=== PATIENT | male | born 1950 | race Caucasian/White ===

== ENCOUNTER 2017-07-04 11:09 | Inpatient (IN) | payer MEDICARE ==
[2017-07-04] VITALS (7 sets, daily range): BP systolic 108–141; BP diastolic 54–74
[~2017-07-04] VITALS: Ht 180.3 cm; Wt 119.0 kg
[~2017-07-04 11:09] MED LIST: ASPIR-LOW81 MG PO; CIPROFLOXACIN500 MG PO; HYDROXYZINE PAM25 MG PO; OMEPRAZOLE20 MG PO; SERTRALINE HYD100 MG PO; TRAZODO50 MG PO; TRAZODONE150 MG PO; VICODIN 500 MG-1 TAB PO; ZOFRAN4 MG PO
--- NOTE | 2017-07-04 11:23 | NUR ---
LBM YESTERDAY. STATES TWICE.
[2017-07-04 11:35] LABS: BASO # 0.1 10*3/uL (0.0-0.1); BASO % 0.5 % (0.0-1.0); EOS # 0.2 10*3/uL (0.0-0.4); HEMATOCRIT 41.4 % (42.0-52.0); HEMOGLOBIN 13.7 g/dl (14.0-18.0); LYMPH # 2.4 10*3/uL (1.3-4.4); LYMPH % 13.3 % (27.0-41.0); MEAN CELL VOLUME 86.3 fl (80.0-94.0); MEAN CORPUSCULAR HGB 28.5 pg (27.0-31.0); MEAN CORPUSCULAR HGB CONC 33.1 g/dl (33.0-37.0); MEAN PLATELET VOLUME 9.8 fl (9.6-12.3); MONO # 1.1 10*3/uL (0.1-1.0); MONO % 6.2 % (3.0-9.0); NEUT # 13.9 10*3/uL (2.3-7.9); NEUT % 78.7 % (47.0-73.0); PLATELET COUNT AUTOMATED 267 10*3/uL (130-400); WHITE BLOOD COUNT 17.7 10*3/uL (4.8-10.8)
[2017-07-04 11:49] LABS: ALBUMIN 3.4 gm/dl (3.1-4.5); ALKALINE PHOSPHATASE 77 U/L (45-117); BUN 10 mg/dl (7-24); CHLORIDE 102 mmol/L (98-107); CREATININE 1.23 mg/dL (0.70-1.30); SGOT/AST 7 IU/L (3-35); SGPT/ALT 13 U/L (12-78); SODIUM 135 mmol/L (136-145); TOTAL PROTEIN 7.4 gm/dL (6.4-8.2)
[2017-07-04 11:52] LABS: BILIRUBIN NEGATIVE (NEGATIVE); BLOOD 2+ (NEGATIVE); CLARITY CLEAR (CLEAR); COLOR YELLOW (YELLOW); GLUCOSE NEGATIVE (NEGATIVE); KETONE NEGATIVE (NEGATIVE); LEUKO ESTERASE NEGATIVE (NEGATIVE); NITRITE NEGATIVE (NEGATIVE); UROBILINOGEN 0.2 E.U./dl (0.2-1.0)
[2017-07-04 11:58] LABS: BACTERIA TRACE
--- NOTE | 2017-07-04 12:40 | NUR ---
MEDICATED WITH TORADOL ORDERED FOR INCREASED PAIN. AURELIA COLEMAN RN
--- NOTE | 2017-07-04 13:53 | NUR ---
PATIENT PAIN SCALE 8/10 AT THIS TIME.
--- NOTE | 2017-07-04 14:15 | NUR ---
REPORT GIVEN TO QUINN JORDAN ON 4TH FLOOR.
--- NOTE | 2017-07-04 14:16 | NUR ---
PATIENT RATES PAIN A 6/10 AT THIS TIME.
--- NOTE | 2017-07-04 14:30 | NUR ---
PATIENT TAKEN TO 4TH FLOOR AT THIS TIME BY THIS NURSE.
--- NOTE | 2017-07-04 14:40 | NUR ---
A 67, admitted to 4E, under the services of DIANA Hager FACP, MD with a diagnosis of DIVERTICULITIS. Chief complaint is LLQ PAIN ON SET 3-4 DAYS WITH LOW GRADE TEMP AND GENERALIZED WEAKNESS. . Patient arrived via stretcher from ER. Monitor applied. Initial assessment completed. Vital signs taken and recorded. DIANA HAGER FACP, MD notified of admission to the unit. Orders received. See assessment for past medical history, medications and allergies. Patient and/or family oriented to unit. [facility] visitation policy reviewed. Clothing/patient valuable form completed. QUINN GOOD
--- NOTE | 2017-07-04 14:42 | NUR ---
QUINN JORDAN AND ROSIE RN AT BEDSIDE WITH PATIENT AT THIS TIME.
[2017-07-04] MEDS ORDERED: AVPAK PRIMIDONE50 M1 PO (14:44)
[2017-07-04] MEDS ORDERED: PLAVIX75 M1 PO (14:45)
[2017-07-04] MEDS ORDERED: ATORVASTATIN CA40 M1 PO (14:47)
--- NOTE | 2017-07-04 16:49 | NUR ---
PT REQUESTED MEDICATION FOR PAIN. PAIN RATED AT 4 OUT OF 10 AND CONSTANT. NORCO WAS GIVEN.
--- NOTE | 2017-07-04 17:49 | NUR ---
PER PT, NORCO WAS INEFFECTIVE FOR PAIN MANAGEMENT. PAIN IS NOW 6 OUT OF 10. WILL CONTINUE TO MONITOR AND WILL GIVE DILAUDID.
--- NOTE | 2017-07-04 18:55 | NUR ---
PT REQUESTED MEDICATION FOR PAIN. PAIN RATED AT 7 OUT OF 10 AND CONSTANT. DILAUDID GIVEN.
--- NOTE | 2017-07-04 19:59 | NUR ---
RN REVIEWED LAB RESULTS AND ORDERS
[2017-07-05] VITALS: BP 115/56
--- NOTE | 2017-07-05 01:04 | NUR ---
PT COMPLAINS OF ABD PAIN 05/12. MEDICATED WITH GOOD EFFECT SEE EMAR.
[2017-07-05 05:26] LABS: ACT PARTIAL THROMBO TIME 24.4 SECONDS (20.8-31.5)
[2017-07-05 05:48] LABS: BUN 9 mg/dl (7-24); CHLORIDE 102 mmol/L (98-107); CHOLESTEROL 80 mg/dL (<200); CREATININE 1.23 mg/dL (0.70-1.30); FREE T4 0.99 ng/dl (0.76-1.46); HDL CHOLESTEROL 41 mg/dl (40-60); LDL CHOLESTEROL 24 mg/dL (9-159); PHOSPHOROUS 2.4 mg/dL (2.5-4.9); POTASSIUM 4.7 mmol/L (3.5-5.1); SODIUM 136 mmol/L (136-145); TRIGLYCERIDES 75 mg/dl (<150); VLDL CHOLESTEROL 15 mg/dL (6-40)
[2017-07-05 06:20] LABS: BASO # 0.1 10*3/uL (0.0-0.1); BASO % 0.6 % (0.0-1.0); EOS # 0.3 10*3/uL (0.0-0.4); EOS % 1.6 % (1.0-4.0); HEMATOCRIT 38.8 % (42.0-52.0); HEMOGLOBIN 12.4 g/dl (14.0-18.0); LYMPH # 2.6 10*3/uL (1.3-4.4); LYMPH % 16.9 % (27.0-41.0); MEAN CELL VOLUME 87.4 fl (80.0-94.0); MEAN CORPUSCULAR HGB 27.9 pg (27.0-31.0); MEAN PLATELET VOLUME 10.7 fl (9.6-12.3); MONO # 1.4 10*3/uL (0.1-1.0); MONO % 8.9 % (3.0-9.0); NEUT # 11.1 10*3/uL (2.3-7.9); NEUT % 71.7 % (47.0-73.0); PLATELET COUNT AUTOMATED 256 10*3/uL (130-400); RED BLOOD COUNT 4.44 10*6/uL (4.50-5.90); RED CELL DISTRI WIDTH 12.9 % (0-14.5); WHITE BLOOD COUNT 15.4 10*3/uL (4.8-10.8)
[2017-07-05 06:33] LABS: VITAMIN D, 25-HYDROXY 29.5 ng/mL (30-100)
--- NOTE | 2017-07-05 07:58 | NUR ---
Window Glazier Helper in to talk to patient. Patient states lives at HOME with HIS . There are 5 steps in the home. Physician: DR JOHNSON Pharmacy: [facility] Home health services: NONE Patient's level of ADLs: INDEPENDENT Patient has working utilities: YES DME: NONE Follow-up physician's appointment after d/c: WILL BE MADE PRIOR TO DC Does patient want to access PORTAL?: Discharge plan HOME. JOAO ABEL PT DOES NOT WANT TO GO TO [facility]. REFUSAL FORM SIGNED AND FAXED TO [facility] AND [facility]LL[facility] IN BILLING. AWARE HE MAY HAVE MEDICARE COPAY. STATES "[facility] WILL PAY THAT". I EXPLAINED THAT IT HAS BEEN MY EXPERIENCE THAT [facility] DOES NOT PAY THAT. PT INSISTS THEY WILL THEY SENT HIM HERE. I EXPLAINED THAT THEY WILL PAY IF HE GOES TO [facility]. HE DECLINES.
[2017-07-05 08:00] VITALS: BP 112/71
[2017-07-05 12:00] VITALS: BP 126/84
--- NOTE | 2017-07-05 12:42 | NUR ---
PT GIVEN DILAUDID FOR PAIN RATED 8/10.
[2017-07-05 16:00] VITALS: BP 132/62
[2017-07-05 20:00] VITALS: BP 119/61
--- NOTE | 2017-07-05 20:00 | NUR ---
LAB RESULTS AND ORDERS REVIEWED
--- NOTE | 2017-07-05 23:20 | NUR ---
PT COMPLAINS OF ABD PAIN 03/11. MEDICATED WITH GOOD EFFECT SEE EMAR
[2017-07-06] VITALS: BP 106/47
--- NOTE | 2017-07-06 02:17 | NUR ---
PT COMPLAINS OF ABD PAIN 04/11. MEDICATED WITH GOOD EFFECT SEE EMAR
--- NOTE | 2017-07-06 05:30 | NUR ---
PT COMPLAINS OF ABD PAIN 02/09. MEDICATED WITH GOOD EFFECT. SEE EMAR.
[2017-07-06 06:05] LABS: BASO # 0.1 10*3/uL (0.0-0.1); BASO % 0.8 % (0.0-1.0); EOS # 0.3 10*3/uL (0.0-0.4); EOS % 2.8 % (1.0-4.0); HEMATOCRIT 36.4 % (42.0-52.0); HEMOGLOBIN 12.1 g/dl (14.0-18.0); LYMPH # 2.9 10*3/uL (1.3-4.4); LYMPH % 24.1 % (27.0-41.0); MEAN CELL VOLUME 88.1 fl (80.0-94.0); MEAN CORPUSCULAR HGB 29.3 pg (27.0-31.0); MEAN CORPUSCULAR HGB CONC 33.2 g/dl (33.0-37.0); MEAN PLATELET VOLUME 10.4 fl (9.6-12.3); MONO # 1.2 10*3/uL (0.1-1.0); MONO % 9.5 % (3.0-9.0); NEUT # 7.6 10*3/uL (2.3-7.9); NEUT % 62.3 % (47.0-73.0); PLATELET COUNT AUTOMATED 249 10*3/uL (130-400); RED BLOOD COUNT 4.13 10*6/uL (4.50-5.90); RED CELL DISTRI WIDTH 12.9 % (0-14.5); WHITE BLOOD COUNT 12.2 10*3/uL (4.8-10.8)
[2017-07-06 06:29] LABS: BUN 7 mg/dl (7-24); CHLORIDE 103 mmol/L (98-107); CREATININE 1.06 mg/dL (0.70-1.30); PHOSPHOROUS 3.1 mg/dL (2.5-4.9); POTASSIUM 4.1 mmol/L (3.5-5.1); SODIUM 138 mmol/L (136-145)
[2017-07-06 08:00] VITALS: BP 140/72
--- NOTE | 2017-07-06 08:05 | NUR ---
PT COMPLAINING OF 7/10RLQ ABDOMINAL PAIN, DESCRIBES PAIN STABBING, SHARP. MEDICATED WITH DILAUDID PER PRN ORDER. WILL MONITOR FOR EFFECTIVENESS. CALL LIGHT WITHIN REACH.
--- NOTE | 2017-07-06 09:25 | NUR ---
MEDICATED WITH NORCO FOR C/O 03/11 RLQ PAIN, STATES PAIN FEELS LIKE "LIGHTNING BOLT". WILL MONITOR FOR EFFECTIVENESS.
--- NOTE | 2017-07-06 11:17 | NUR ---
MEDICATED WITH DILAUDID PER PRN ORDER FOR C/O RLQ PAIN. PT STATES PAIN JUST COMES AND GOES AND HE IS NEVER REALLY PAIN FREEE. RATES PAIN 04/11. WILL MONITOR FOR EFFECTIVENESS.
[2017-07-06 12:00] VITALS: BP 121/68
--- NOTE | 2017-07-06 12:00 | NUR ---
DR ESCOBAR NOTIFIED OF PT'S COMPLAINT OF PRODUCTIVE COUGH WITH GREEN SPUTUM, ALSO NOTIFIED OF PT'S PERSISTENT PAIN DESPITE HAVING DILAUDID EVERY 3 HOURS AND NORCO GIVEN, PT COMPLAINING OF DIZZINESS ALSO. ORDERS RECEIVED FOR CXR AND SPUTUM CULTURE.
--- NOTE | 2017-07-06 12:40 | NUR ---
PT DOWN FOR CXR AT THIS TIME.
--- NOTE | 2017-07-06 12:40 | NUR ---
PT DOWN FOR CT AT THIS TIME.
--- NOTE | 2017-07-06 12:52 | NUR ---
PT BACK FROM CXR AT THIS TIME.
--- NOTE | 2017-07-06 12:52 | NUR ---
PT BACK FROM CT AT THIS TIME.
--- NOTE | 2017-07-06 13:33 | NUR ---
MEDICATED WITH 1MG DILAUDID PER PRN ORDER FOR COMPLAINTS OF RLQ PAIN 04/11. WILL MONITOR FOR EFFECTIVENESS. FAMILY AT BEDSIDE.
--- NOTE | 2017-07-06 14:37 | NUR ---
PT RESTING IN BED, NO DISTRESS NOTED. STATES SOME RELIEF OF PAIN. NOW RATES 02/09. WILL CONTINUE TO MONITOR.
--- NOTE | 2017-07-06 15:32 | NUR ---
MEDICATED WITH NORCO PER PRN ORDER FOR COMPLAINTS OF RLQ, RATES PAIN 7/10. WILL MONITOR FOR EFFECTIVENESS.
[2017-07-06 16:00] VITALS: BP 119/73
--- NOTE | 2017-07-06 16:18 | NUR ---
PT RESTING IN BED, STATES SOME RELIEF OF RLQ PAIN, RATES PAIN 4/10. WILL CONTINUE TO MONITOR. CALL LIGHT WITHIN REACH.
[2017-07-06 20:00] VITALS: BP 141/68
--- NOTE | 2017-07-06 20:10 | NUR ---
MEDICATED WITH PRN DILAUDID ORDERED FOR C/O LOWER ABDOMINAL PAIN RATED A 7.
--- NOTE | 2017-07-06 20:14 | NUR ---
PATIENT RESTING COMFORTABLY IN BED. C/O LOWER ABDOMINAL PAIN WHICH IS WORSE IN THE RLQ. HE DOES STATE IT IS "A MILLION TIMES BETTER" THAN WHEN HE CAME IN. HE IS PLEASANT/COOPERATIVE WITH CARE, RESPIRATIONS EASY/REG, SEE SHIFT ASSESSMENT. CALL LIGHT IN REACH, WILL MONITOR.
--- NOTE | 2017-07-06 21:17 | NUR ---
MEDICATED WITH PRN NORCO ORDERD FOR C/O ABDOMINAL PAIN RATED A 7.
--- NOTE | 2017-07-06 22:20 | NUR ---
PATIENT STATES EARLIER NORCO WAS EFFECTIVE IN DECREASING ABDOMINAL PAIN.
[2017-07-07] VITALS: BP 122/69
--- NOTE | 2017-07-07 01:50 | NUR ---
PATIENT SLEEPING, CPAP IN PLACE, RESPIRATIONS EASY/REG. NO SXS OF DISTRESS, FLUIDS MAINTAINED PER ORDER. CALL LIGHT IN REACH. WILL MONITOR.
--- NOTE | 2017-07-07 03:18 | NUR ---
24 HOUR CHART CHECK COMPLETE
--- NOTE | 2017-07-07 04:29 | NUR ---
MEDICATED WITH PRN NORCO ORDERED FOR C/O ABDOMINAL PAIN RATED A 5.
--- NOTE | 2017-07-07 05:30 | NUR ---
EARLIER NORCO EFFECTIVE PER PATIENT.
[2017-07-07 06:00] LABS: BASO # 0.1 10*3/uL (0.0-0.1); EOS # 0.5 10*3/uL (0.0-0.4); EOS % 4.6 % (1.0-4.0); HEMATOCRIT 37.2 % (42.0-52.0); HEMOGLOBIN 12.1 g/dl (14.0-18.0); LYMPH # 2.7 10*3/uL (1.3-4.4); LYMPH % 24.5 % (27.0-41.0); MEAN CELL VOLUME 87.5 fl (80.0-94.0); MEAN CORPUSCULAR HGB 28.5 pg (27.0-31.0); MEAN CORPUSCULAR HGB CONC 32.5 g/dl (33.0-37.0); MEAN PLATELET VOLUME 10.8 fl (9.6-12.3); MONO % 9.2 % (3.0-9.0); NEUT # 6.7 10*3/uL (2.3-7.9); NEUT % 60.4 % (47.0-73.0); PLATELET COUNT AUTOMATED 290 10*3/uL (130-400); RED BLOOD COUNT 4.25 10*6/uL (4.50-5.90); RED CELL DISTRI WIDTH 12.7 % (0-14.5)
[2017-07-07 08:00] VITALS: BP 148/70
--- NOTE | 2017-07-07 08:00 | NUR ---
PRN DILAUDID GIVEN PER PATIENT REQUEST FOR R/LLQ PAIN RATED 8/10. WILL MONITOR.
--- NOTE | 2017-07-07 08:53 | NUR ---
DILAUDID EFFECTIVE. PATIENT SATISFIED AND RATES PAIN 4/10.
--- NOTE | 2017-07-07 11:38 | NUR ---
PATIENT REQUEST PRN DILAUDID FOR LQ ABDOMINAL PAIN RATED 8/10. WILL MONITOR
[2017-07-07 12:00] VITALS: BP 136/76
--- NOTE | 2017-07-07 12:12 | NUR ---
REASSESSED PATIENTS PAIN BEFORE HE WENT DOWN TO CT. RATED PAIN 6/10.
--- NOTE | 2017-07-07 14:03 | NUR ---
NORCO GIVEN PER PATIENT REQUEST FOR C/O LOWER ABDOMINAL PAIN RATED 7/10. WILL MONITOR.
--- NOTE | 2017-07-07 14:45 | NUR ---
NORCO WAS NOT EFFECTIVE FOR ABDOMINAL PAIN. PATIENT REQUESTED DILAUDID FOR ABDOMINAL PAIN. PATIENT RATES PAIN AT 7/10. WILL MONITOR.
--- NOTE | 2017-07-07 15:45 | NUR ---
DILAUDID EFFECTIVE. PATIENT RATES PAIN 4/10 AND IS SATISFIED.
[2017-07-07 16:00] VITALS: BP 114/64
--- NOTE | 2017-07-07 17:24 | NUR ---
DILAUDID GIVEN PER PATIENT REQUEST FOR ABDOMINAL PAIN RATED 7/10 IN THE LOWER QUADRANT. PATIENT ALSO C/O CRAMPING AND TERRIBLE GAS PAINS. WILL MONITOR.
--- NOTE | 2017-07-07 18:17 | NUR ---
PATIENT RATES PAIN AT A 5 OR 6 OUT OF 10. HE SAID "IT JUST DOESN'T GO AWAY." WILL CONTINUE TO MANAGE PAIN.
[2017-07-07 20:00] VITALS: BP 134/67
--- NOTE | 2017-07-07 20:00 | NUR ---
ASSUMED CARE OF PATIENT. ASSESSMENT COMPLETE. RESTING IN BED. NO VOICED COMPLAINTS. CALL LIGHT IN REACH. WILL CONTINUE TO MONITOR.
--- NOTE | 2017-07-07 20:05 | NUR ---
PT RECEIVED DILAUDID FOR PAIN RATED 7/10 IN RIGHT LOWER ABDOMEN.
--- NOTE | 2017-07-07 20:38 | NUR ---
PT STATES RELIEF OF PAIN AFTER DILAUDID ADMINISTRATION. RATES PAIN 4/10.
--- NOTE | 2017-07-07 23:52 | NUR ---
PT RECEIVED DILAUDID FOR PAIN RATED 7/10.
[2017-07-08] VITALS: BP 96/54
--- NOTE | 2017-07-08 00:30 | NUR ---
PT RESTING MORE COMFORTABLY FOLLOWING DILAUDID ADMINISTRATION.
--- NOTE | 2017-07-08 01:47 | NUR ---
PT RECEIVED NORCO FOR PAIN RATED 6/10.
--- NOTE | 2017-07-08 02:26 | NUR ---
NORCO APPEARS TO BE EFFECTIVE, PT SLEEPING. CPAP INTACT. IVF INFUSING PER ORDER. CALL LIGHT IN REACH. WILL CONTINUE TO MONITOR.
--- NOTE | 2017-07-08 02:45 | NUR ---
PT IS RESTING COMFORTABLY AFTER PAIN MEDICATION ADMINISTRATION.
[2017-07-08 04:00] VITALS: BP 98/58
[2017-07-08 06:15] LABS: BASO # 0.1 10*3/uL (0.0-0.1); BASO % 0.9 % (0.0-1.0); EOS # 0.4 10*3/uL (0.0-0.4); HEMATOCRIT 35.2 % (42.0-52.0); HEMOGLOBIN 11.6 g/dl (14.0-18.0); LYMPH # 2.4 10*3/uL (1.3-4.4); LYMPH % 27.4 % (27.0-41.0); MEAN CELL VOLUME 87.1 fl (80.0-94.0); MEAN CORPUSCULAR HGB 28.7 pg (27.0-31.0); MEAN PLATELET VOLUME 10.5 fl (9.6-12.3); MONO # 0.9 10*3/uL (0.1-1.0); MONO % 10.1 % (3.0-9.0); NEUT % 56.4 % (47.0-73.0); PLATELET COUNT AUTOMATED 295 10*3/uL (130-400); RED BLOOD COUNT 4.04 10*6/uL (4.50-5.90); RED CELL DISTRI WIDTH 12.8 % (0-14.5); WHITE BLOOD COUNT 8.8 10*3/uL (4.8-10.8)
--- NOTE | 2017-07-08 06:25 | NUR ---
NORCO GIVEN FOR PAIN RATED 5/10.
[2017-07-08 06:27] LABS: BUN 4 mg/dl (7-24); CHLORIDE 105 mmol/L (98-107); CREATININE 1.06 mg/dL (0.70-1.30); POTASSIUM 4.3 mmol/L (3.5-5.1); SODIUM 141 mmol/L (136-145)
[2017-07-08 08:00] VITALS: BP 159/80
--- NOTE | 2017-07-08 10:30 | NUR ---
PRN PAIN MED GIVEN FOR 5/10 RLQ PAIN.
--- NOTE | 2017-07-08 11:30 | NUR ---
PRN PAIN MED MINIMALLY EFFECTIVE, PT REPORTS 4/10 RLQ ABDOMINAL PAIN.
--- NOTE | 2017-07-08 11:33 | NUR ---
PRN ZOFRAN EFFECTIVE, PT DENIES NAUSEA.
[2017-07-08 12:00] VITALS: BP 148/76
--- NOTE | 2017-07-08 12:21 | NUR ---
PRN PAIN MED GIVEN FOR 6/10 RLQ ABDOMINAL PAIN.
--- NOTE | 2017-07-08 13:01 | NUR ---
IV CATHETER NOT CHANGED , PT POSSIBLE DISCHARGE TODAY.
--- NOTE | 2017-07-08 13:21 | NUR ---
PRN PAIN MED IS MINIMALLY EFFECTIVE, PT REPORTS HIS PAIN UNCHANGED AT 6/10 TO RLQ.
--- NOTE | 2017-07-08 14:34 | NUR ---
PRN ZOFRAN GIVEN FOR PT REPORT NAUSEA.
[2017-07-08 16:00] VITALS: BP 125/80
--- NOTE | 2017-07-08 16:04 | NUR ---
PRN PAIN MED GIVEN FOR A 6/10 RLQ ABDOMINAL PAIN.
--- NOTE | 2017-07-08 17:01 | NUR ---
PRN PAIN MED MINIMALLY EFFECTIVE, PT REPORTS HIS PAIN 5/10 TO RLQ.
[2017-07-08 20:00] VITALS: BP 137/73
--- NOTE | 2017-07-08 20:33 | NUR ---
PT C/O RLQ PAIN, REQUESTED PRN PAIN MEDICATION, ADMINISTERED DILAUDID IV PRN PER ORDERS, WILL MONITOR EFFECTS
--- NOTE | 2017-07-08 21:59 | NUR ---
PT RESTING IN BED WITH EYES CLOSED RESPS EASY AND NONLABORED WITH NO S/S OF DISTRESS PRN PAIN MEIDCATION EFFECTIVE AT THIS TIME
[2017-07-09] VITALS: BP 115/58
--- NOTE | 2017-07-09 | NUR ---
PT STATES NORCO MINIMALLY EFFECTIVE TO REDUCE ABDOMINAL PAIN 02/09 TO 12/10. ROLY MONCADA RN
--- NOTE | 2017-07-09 02:07 | NUR ---
PT C/O ABDOMINAL PAIN AND REQUESTED PRN PAIN MEDICATION ADMINSITERED DILAUDID IV PRN PER ORDERS WILL MONITOR EFFECTS
--- NOTE | 2017-07-09 03:07 | NUR ---
PT REPORTS THAT PAIN MEDICATION IS EFFECTIVE,
--- NOTE | 2017-07-09 05:36 | NUR ---
PT REQUESTED PRN PAIN MEDICATION, ADMINISTERED DILAUDID IV PRN PER ORDERS, R/T ABDOMINAL PAIN, WILL MONITOR EFFECTS
--- NOTE | 2017-07-09 06:40 | NUR ---
PT REPORTS DECREASED PAIN LEVEL, DILAUDID IV PRN PER ORDERS EFFECTIVE, PT RESTING IN BED AT THIS TIME, CALL LIGHT WITH IN REACH
[2017-07-09 08:00] VITALS: BP 136/74
--- NOTE | 2017-07-09 08:00 | NUR ---
PATIENT CARE BEING COMPLETED BY [facility] STUDENT TODAY. ON MY ASSESSMENT PT IS ALERT AND ORIENTED, VITALS ARE WNL WITH EXCEPTION OF HR 43. PATIENT REMAINS NON SYMPTOMATIC. HR IS NORMAL SINUS, LUNGS ARE CLEAR BUT DECREASED AND BOWEL SOUNDS ARE ACTIVE X 4. PT REPORTS HIS LAST BM WAS YESTERDAY AND WAS DIARRHEA.
--- NOTE | 2017-07-09 09:40 | NUR ---
PT MEDICATED BY STUDENT FOR 5-6/10 RLQ ABDOMINAL PAIN.
[2017-07-09 12:00] VITALS: BP 126/86
--- NOTE | 2017-07-09 12:42 | NUR ---
PT REPORTS THAT HE TOLERATED HIS SOFT BREAKFAST WELL. PT DENIES ANY N/V. PT HAS HAD A BM TODAY WHICH WAS DIARRHEA.
--- NOTE | 2017-07-09 13:52 | NUR ---
PRN NORCO GIVEN FOR 6/10 RLQ PAIN.
--- NOTE | 2017-07-09 14:52 | NUR ---
PRN PAIN MED MINIMALLY EFFECTIVE, PT RATES HIS PAIN 4/10 TO RLQ.
[2017-07-09 16:00] VITALS: BP 150/67
--- NOTE | 2017-07-09 18:05 | NUR ---
PRN PAIN MED GIVEN FOR 6/10 RLQ PAIN.
--- NOTE | 2017-07-09 19:07 | NUR ---
PRN ZOFRAN GIVEN FOR MILD NAUSEA, NO VOMITING NOTED.
--- NOTE | 2017-07-09 19:08 | NUR ---
PRN PAIN MED MINIMALLY EFFECTIVE, PT RATES PAIN 6/10 STILL. COMFORT MEASURES INITIATED.
[2017-07-09 20:00] VITALS: BP 124/73
--- NOTE | 2017-07-09 21:30 | NUR ---
PT STATES ZOFRAN EFFECTIVE FOR NAUSEA. ROLY MONCADA RN
[2017-07-10] VITALS: BP 108/48
--- NOTE | 2017-07-10 06:30 | NUR ---
PT STATES NORCO EFFECTIVE TO REDUCE ABDOMINAL PAIN FROM 12/10 TO 11/09. ROLY MONCADA RN
[2017-07-10 08:00] VITALS: BP 130/66
--- NOTE | 2017-07-10 08:00 | NUR ---
PT SITTING UP AT SIDE OF BED EATING BREAKFAST, STATES HE FEELS HE IS READY TO GO HOME, DOES STATES HE STILL HAS SOME INTERMITTENT RLQ PAIN, STATES IT COMES AND GOES, BUT IS NOT SEVERE IT HAD BEEN, RATES PAIN 3/10. PT DENIES ANY NAUSEA, DOES STATE SOME DIARRHEA-WHICH HE STATES IS NORMAL FOR HIM. DENIES ANY FURTHER ISSUES. CALL LIGHT WITHIN REACH.
[2017-07-10 08:56] LABS: BASO # 0.1 10*3/uL (0.0-0.1); BASO % 1.1 % (0.0-1.0); EOS # 0.5 10*3/uL (0.0-0.4); EOS % 5.4 % (1.0-4.0); HEMATOCRIT 38.6 % (42.0-52.0); HEMOGLOBIN 12.8 g/dl (14.0-18.0); LYMPH # 2.2 10*3/uL (1.3-4.4); MEAN CELL VOLUME 85.8 fl (80.0-94.0); MEAN CORPUSCULAR HGB 28.4 pg (27.0-31.0); MEAN CORPUSCULAR HGB CONC 33.2 g/dl (33.0-37.0); MEAN PLATELET VOLUME 9.9 fl (9.6-12.3); MONO # 0.6 10*3/uL (0.1-1.0); MONO % 5.9 % (3.0-9.0); NEUT # 6.3 10*3/uL (2.3-7.9); NEUT % 64.4 % (47.0-73.0); PLATELET COUNT AUTOMATED 324 10*3/uL (130-400); RED CELL DISTRI WIDTH 12.7 % (0-14.5); WHITE BLOOD COUNT 9.8 10*3/uL (4.8-10.8)
[2017-07-10 09:11] LABS: ALKALINE PHOSPHATASE 77 U/L (45-117); BUN 6 mg/dl (7-24); CHLORIDE 105 mmol/L (98-107); CREATININE 1.27 mg/dL (0.70-1.30); POTASSIUM 4.2 mmol/L (3.5-5.1); SGOT/AST 15 IU/L (3-35); SGPT/ALT 20 U/L (12-78); SODIUM 139 mmol/L (136-145); TOTAL PROTEIN 6.9 gm/dL (6.4-8.2)
[2017-07-10 12:00] VITALS: BP 131/70
[2017-07-10] MEDS ORDERED: NORCO 5-325 TA1 EACH PO (14:20)
--- NOTE | 2017-07-10 15:16 | NUR ---
Discharge instructions reviewed with patient/family. Patient receptive and verbalizes understanding. Follow-up care arranged. Written instructions given to patient/family. IV site removed. Pt denied need for transport to [facility], [place]. CHRISTY DE LA PAZ
== END 2017-07-10 15:30 | disposition home or self-care (01) | DRG 392 ==
LOC: ED 11:09 → EDHOLD 13:33 → 4E 13:33
PROVIDERS: Internal Medicine; Student in an Organized Health Care Education/Training Program; ADMIT Internal Medicine
PROC: 5A09357 Assistance with Respiratory Ventilation, Less than 24 Consecutive Hours, Continuous Positive Airway Pressure (ICD-10-PCS; principal; 2017-07-09)
DX: K57.20 Diverticulitis of large intestine with perforation and abscess without bleeding (principal); E83.39 Other disorders of phosphorus metabolism; E87.1 Hypo-osmolality and hyponatremia; R00.1 Bradycardia, unspecified; R31.9 Hematuria, unspecified; R73.9 Hyperglycemia, unspecified; D64.9 Anemia, unspecified; F43.10 Post-traumatic stress disorder, unspecified; G47.33 Obstructive sleep apnea (adult) (pediatric); K58.9 Irritable bowel syndrome, unspecified; E53.8 Deficiency of other specified B group vitamins; Z86.73 Personal history of transient ischemic attack (TIA), and cerebral infarction without residual deficits; Z90.49 Acquired absence of other specified parts of digestive tract; Z87.891 Personal history of nicotine dependence; Z80.0 Family history of malignant neoplasm of digestive organs; Z80.8 Family history of malignant neoplasm of other organs or systems; Z88.5 Allergy status to narcotic agent; Z88.0 Allergy status to penicillin; Z88.8 Allergy status to other drugs, medicaments and biological substances; Z79.899 Other long term (current) drug therapy

== ENCOUNTER 2018-06-15 09:51 | Inpatient (IN) | payer MEDICARE ==
[~2018-06-15] VITALS: Ht 180.3 cm; Wt 118.4 kg
--- NOTE | ~2018-06-15 | EKG ---
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 Electronically Signed On 06-15-2018 13:56:34 PDT by Frantz Bruno MD CM:EKGRPT:ELECTROCARDIOGRAM REPORT [id number] ELIZABETH COLEMAN DRAFT REPORT ELIZABETH MELENDREZ DO
--- NOTE | ~2018-06-15 | PR ---
[place], [place] PROGRESS NOTE NAME: JACQUELINE MARCIAL UNIT #: [id number] ROOM: 425 DOCTOR: MURPHY PRO MD BIRTHDATE: [birth year] DOS: 06/16/2018 CARDIOLOGY PROGRESS NOTE SUBJECTIVE: The patient was seen in the Cardiology Department today 06/16/2018 prior to his stress test. He states that overnight he has had a lot of problems with abdominal pain and nausea. He has not vomited. He denies any chest pain. PHYSICAL EXAMINATION: VITAL SIGNS: On exam, his pulse is 62 and regular, blood pressure is 139/58. He is afebrile with a temperature 98.8. NECK: Supple. He has no jugular distention. Carotids are full. LUNGS: Respirations are unlabored. Chest is clear with decreased breath sounds at the bases. HEART: Has a regular rhythm with an S4 gallop. ABDOMEN: Firm and diffusely tender, but has normal bowel sounds. EXTREMITIES: Showed no edema. LABORATORY DATA: Hemoglobin is 12.6, hematocrit 38.4. There are 12,600 white cells and 243,000 platelets. Sodium is 138, potassium 4.0, BUN 7, creatinine 1.15. IMPRESSION: 1. Atypical precordial pain, etiology to be determined. 2. Abdominal pain, likely due to acute diverticulitis. 3. Syncopal episode, most likely vasovagal from abdominal pain, possibly also due to dehydration. 4. History of cigarette abuse, abstinent for about 1 month. 5. Status post cholecystectomy. 6. Probable chronic obstructive pulmonary disease. 7. Family history of heart disease. PLAN: We will proceed with a pharmacologic stress test today. An echocardiogram has also been requested. Further recommendations depend upon the results of these tests. We will defer his abdominal workup and management to his primary team. I thank the hospitalist physicians for asking our advice regarding his care. [place], [place] PROGRESS NOTE NAME: JACQUELINE MARCIAL UNIT #: [id number] ROOM: 425 DOCTOR: MURPHY PRO MD BIRTHDATE: [birth year] MURPHY PRO MD CM:PNTRANS [id number] MURPHY PRO MD 06/16/18 1746 interface
--- NOTE | ~2018-06-15 | CON ---
[place], [place] REPORT OF CONSULTATION NAME: [facility]CIAL [id number] UNIT #: [id number] ROOM: 425 DOCTOR: MURPHY PRO MD BIRTHDATE: [birth year] DOS: 06/15/2018 CARDIOLOGY CONSULTATION REASON FOR CONSULTATION: Chest pain, syncope. HISTORY OF PRESENT ILLNESS: The patient was seen at his bedside in the hospital today on 06/15/2018 for evaluation of chest discomfort and syncope. He is a 68-year-old man who was no previous history of heart disease. He does have a strong family history of coronary artery disease and he does have a personal history of cigarette abuse. He was in his normal state of health until the last few months when he began having episodes of left chest pain that came and went without provocation. He was evaluated by his physicians at the [facility] and he was scheduled for an echocardiogram and stress test, but these have not yet been done. In the last three weeks, he has had remittent abdominal pain and diarrhea. He thought that it had a recurrence of his diverticulitis. He has been trying to "ride it out." At this morning, he got up and blew his nose and dropped the tissue. He stooped over to pick it up, became lightheaded and then fell backwards. He did not hit his head, but he noticed after that he had an aching sensation in his chest and shoulder. This was similar to what he has had in the past, but worse. It was not related to deep breathing or movement of the shoulder. He became concerned and came to the Emergency Room. Since he has been here, his troponins have been negative and his electrocardiograms have shown no acute changes. PAST MEDICAL HISTORY: Includes: 1. Obesity. 2. Diverticulitis. 3. Status post cholecystectomy. 4. History of duodenal diverticulum. 5. History of kidney stone. 6. History of transient ischemic attack and stroke about 3 years ago. Etiology was apparently not found. He specifically denied any problems with carotid stenosis or arrhythmias. FAMILY HISTORY: Both of his parents had heart disease in their later years. His father ended up dying of metastatic colon cancer in his 70s. His mother had heart disease in her 60s. His sister during open heart surgery in her 70s. MEDICATIONS PRIOR TO ADMISSION: Refresh eyedrops t.i.d., atorvastatin 40 mg daily, vitamin D 2000 units daily, clopidogrel 75 mg daily, hydroxyzine 50 mg q.i.d. p.r.n., omeprazole 20 mg daily, prazosin 8 mg at bedtime, primidone 150 mg t.i.d., sertraline 250 mg daily, sildenafil 100 mg daily and trazodone 250 mg at bedtime. ALLERGIES: He lists allergies to CODEINE and PENICILLIN. REVIEW OF SYSTEMS: The patient denies diplopia, loss of vision. He denies any recent focal weakness. He denies fevers, chills, sweats or recent weight change. He did have the syncopal episode noted above. He denies vomiting, but [place], [place] REPORT OF CONSULTATION NAME: JACQUELINE MARCIAL UNIT #: [id number] ROOM: 425 DOCTOR: MURPHY PRO MD BIRTHDATE: [birth year] he has had nausea and diarrhea along with severe abdominal pain. He denies fevers, chills, sweats or recent weight change. He denies hemoptysis or hematemesis. He denies any skin rashes. He has not had any blood in his stools or urine. He denies any peripheral edema. He has had the chest discomfort noted above. He denies polyuria or polydipsia. He denies heat or cold intolerance. The remainder of the review of systems is negative except as noted above. SOCIAL HISTORY: The patient was a smoker, but quit about a month ago. He does not consume excessive amounts of alcohol. PHYSICAL EXAMINATION: GENERAL: The patient is an overweight white male who is awake, alert and oriented. VITAL SIGNS: Pulse is 55 and regular, blood pressure is 123/69. He is afebrile. He weighs 118.4 kg and has a body mass index of 36.4. HEENT: Normocephalic and atraumatic. Extraocular muscles are intact. Sclerae are clear. Pupils equal, round and react to light. The oral mucosa is moist. Tongue is midline. NECK: Supple. He has no jugular distention. Carotids are full. I heard no bruits. He had no neck or supraclavicular masses and no thyromegaly. LUNGS: Respirations are unlabored. CHEST: Clear to auscultation and percussion. He has no presacral edema or chest wall tenderness. CARDIOVASCULAR: His heart has a regular rhythm. He has a fourth heart sound, but no third heart sound. The PMI is not displaced. There is no precordial heave, lift or thrill. ABDOMEN: Firm and slightly distended. He does have normal bowel sounds. His abdomen is diffusely tender to touch. EXTREMITIES: Showed no clubbing, cyanosis or edema. Pedal pulses are easily palpated in the feet bilaterally. LABORATORY DATA: Electrocardiogram shows sinus bradycardia with atrial premature contractions. He has nonspecific intraventricular conduction delay, but no acute ST or T-wave changes. Hemoglobin is 14.6, white count 15,000, platelet count 287,000. Serial troponins have been negative. C-reactive protein is elevated at 3.21. ProBNP is normal at 30. Sodium is 140, potassium 4.1, chloride 107, CO2 26, BUN 7, creatinine 1.05. IMPRESSION: 1. Atypical precordial chest pain. Etiology to be determined. 2. Abdominal pain, possibly due to acute diverticulitis. 3. Syncopal episode, most likely vasovagal from his abdominal pain or possibly due to dehydration from his abdominal pain. 4. History of cigarette abuse, abstinent for about one month. 5. Status post cholecystectomy. 6. Probable chronic obstructive pulmonary disease. 7. Family history of heart disease. PLAN: We will continue to monitor the patient on telemetry. Serial cardiac [place], [place] REPORT OF CONSULTATION NAME: JACQUELINE MARCIAL UNIT #: [id number] ROOM: 425 DOCTOR: MURPHY PRO MD BIRTHDATE: [birth year] enzymes have been negative. We will proceed with an echocardiogram and pharmacologic stress test. Further recommendations will depend upon the results of the studies. I will also be getting a carotid ultrasound to further investigate the cause for his stroke. [facility] Cardiology and I thank the hospitalist physicians for asking our advice regarding the patient's care. MURPHY PRO MD CM:CONSTR:REPORT OF CONSULTATION 1525 06/15/18 [id number] interface
--- NOTE | ~2018-06-15 | EKG ---
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 Electronically Signed On 06-15-2018 13:56:07 PDT by Frantz Bruno MD CM:EKGRPT:ELECTROCARDIOGRAM REPORT [id number] ELIZABETH COLEMAN DRAFT REPORT ELIZABETH MELENDREZ DO
--- NOTE | ~2018-06-15 | EKG ---
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
--- NOTE | ~2018-06-15 | PR ---
[place], [place] PROGRESS NOTE NAME: JACQUELINE MARCIAL [facility] [id number] UNIT #: [id number] ROOM: 425 DOCTOR: MURPHY PRO MD BIRTHDATE: [birth year] DOS: 06/17/2018 CARDIOLOGY PROGRESS NOTE SUBJECTIVE: The patient was seen at his bedside today 06/17/2018 for followup of atypical chest pain. He is a 68-year-old man who presented with abdominal pain. His cardiac workup was unremarkable and he showed no signs of acute coronary ischemia or chronic coronary artery disease. His abdominal pain is felt to be due to a probable diverticulitis. He did have a syncopal episode, which is also likely due to vasovagal reaction to his abdominal pain. The patient continues to have abdominal pain, but denies any chest discomfort at this time. PHYSICAL EXAMINATION: VITAL SIGNS: His pulse is 53 and regular, blood pressure is 125/58. He is afebrile. He weighs 118.4 kg and has a body mass index of 36.4. NECK: Supple. He has no jugular distention. Carotids are full. LUNGS: Respirations are unlabored. Chest is clear. HEART: Has a regular rhythm with an S4 gallop. ABDOMEN: Distended and tender, but has bowel sounds. EXTREMITIES: Showed no edema. LABORATORY DATA: White count 11,900, hemoglobin 12.7. Sodium 139, potassium 4.3, chloride 101, CO2 of 29, BUN 7, creatinine 1.03. IMPRESSION: 1. Atypical chest pain, most likely due to abdominal process. 2. Syncopal episode, vasovagal from abdominal pain exacerbated by dehydration. 3. History of cigarette abuse, abstinent for about 1 month. 4. Status post cholecystectomy. 5. Chronic obstructive pulmonary disease. 6. Family history of heart disease. PLAN: No other cardiac workup is planned. The patient is being managed by the primary physicians for probable diverticulitis. We will sign off, but remain available if needed and I thank the hospitalist physicians for asking our advice regarding his care. [place], [place] PROGRESS NOTE NAME: JACQUELINE MARCIAL UNIT #: [id number] ROOM: 425 DOCTOR: MURPHY PRO MD BIRTHDATE: [birth year] MURPHY PRO MD CM:PNULISES [id number] MURPHY PRO MD 06/17/18 1249 interface
[~2018-06-15 09:51] MED LIST changes: +ATORVASTATIN CA40 M1 PO; +AVPAK PRIMIDONE50 M1 PO; +NORCO 5-325 TA1 EACH PO; +PLAVIX75 M1 PO
[2018-06-15 09:59] VITALS: BP 120/67
[2018-06-15] MEDS ORDERED: Mysoline50 MG PO (10:15)
[2018-06-15] MEDS ORDERED: PRAZOSIN HCL2 MG PO (10:15)
[2018-06-15] MEDS ORDERED: ZOLOFT100 MG PO (10:16)
[2018-06-15] MEDS ORDERED: TRAZODONE100 MG PO (10:16)
[2018-06-15] MEDS ORDERED: LIPITOR40 MG PO (10:17)
[2018-06-15] MEDS ORDERED: HYDROXYZINE PAM50 MG PO (10:17)
[2018-06-15] MEDS ORDERED: REFRESH OPTIVE10 M2 OP (10:18)
[2018-06-15] MEDS ORDERED: OMEPRAZOLE MAGN20 MG PO (10:18)
[2018-06-15] MEDS ORDERED: VIAGRA100 MG PO (10:19)
[2018-06-15] MEDS ORDERED: VITAMIN D31000 UNI1 PO (10:19)
[2018-06-15] MEDS ORDERED: Clopidogrel75 MG PO (10:19)
[2018-06-15 10:20] LABS: BASO # 0.1 10*3/uL (0.0-0.1); BASO % 0.7 % (0.0-1.0); EOS # 0.3 10*3/uL (0.0-0.4); HEMATOCRIT 43.7 % (42.0-52.0); HEMOGLOBIN 14.6 g/dl (14.0-18.0); LYMPH # 2.4 10*3/uL (1.3-4.4); MEAN CELL VOLUME 86.5 fl (80.0-94.0); MEAN CORPUSCULAR HGB 28.9 pg (27.0-31.0); MEAN CORPUSCULAR HGB CONC 33.4 g/dl (33.0-37.0); MONO % 6.9 % (3.0-9.0); NEUT # 11.1 10*3/uL (2.3-7.9); NEUT % 74.1 % (47.0-73.0); PLATELET COUNT AUTOMATED 287 10*3/uL (130-400); RED BLOOD COUNT 5.05 10*6/uL (4.50-5.90); RED CELL DISTRI WIDTH 13.6 % (0-14.5)
[2018-06-15 10:30] LABS: ACT PARTIAL THROMBO TIME 22.9 SECONDS (20.8-31.5); INTERNATIONAL NORM RATIO 0.9 (2.0-3.5)
[2018-06-15 10:38] LABS: ALBUMIN 3.4 gm/dl (3.1-4.5); ALKALINE PHOSPHATASE 84 U/L (45-117); BUN 7 mg/dl (7-24); CHLORIDE 107 mmol/L (98-107); CREATININE 1.05 mg/dL (0.70-1.30); POTASSIUM 4.1 mmol/L (3.5-5.1); SGOT/AST 8 IU/L (3-35); SGPT/ALT 16 U/L (12-78); SODIUM 140 mmol/L (136-145); TOTAL PROTEIN 7.6 gm/dL (6.4-8.2)
[2018-06-15 10:44] LABS: TROPONIN I < 0.015 ng/ml (<0.045)
[2018-06-15 10:57] VITALS: BP 122/68
[2018-06-15 13:45] VITALS: BP 130/66
[2018-06-15 14:10] VITALS: BP 123/69
[2018-06-15 16:00] VITALS: BP 129/72
[2018-06-15 20:00] VITALS: BP 121/80
[2018-06-16] VITALS: BP 139/58
[2018-06-16 06:38] LABS: BASO # 0.1 10*3/uL (0.0-0.1); BASO % 0.7 % (0.0-1.0); EOS # 0.3 10*3/uL (0.0-0.4); EOS % 2.2 % (1.0-4.0); HEMATOCRIT 38.4 % (42.0-52.0); HEMOGLOBIN 12.6 g/dl (14.0-18.0); LYMPH # 2.6 10*3/uL (1.3-4.4); LYMPH % 20.7 % (27.0-41.0); MEAN CELL VOLUME 88.1 fl (80.0-94.0); MEAN CORPUSCULAR HGB 28.9 pg (27.0-31.0); MEAN CORPUSCULAR HGB CONC 32.8 g/dl (33.0-37.0); MEAN PLATELET VOLUME 10.3 fl (9.6-12.3); MONO # 1.2 10*3/uL (0.1-1.0); MONO % 9.8 % (3.0-9.0); NEUT # 8.4 10*3/uL (2.3-7.9); NEUT % 66.3 % (47.0-73.0); PLATELET COUNT AUTOMATED 243 10*3/uL (130-400); RED BLOOD COUNT 4.36 10*6/uL (4.50-5.90); RED CELL DISTRI WIDTH 13.4 % (0-14.5); WHITE BLOOD COUNT 12.6 10*3/uL (4.8-10.8)
[2018-06-16 07:14] LABS: CHLORIDE 103 mmol/L (98-107); SODIUM 138 mmol/L (136-145)
[2018-06-16 07:31] LABS: ALBUMIN 2.9 gm/dl (3.1-4.5); ALKALINE PHOSPHATASE 73 U/L (45-117); BUN 7 mg/dl (7-24); CHOLESTEROL 120 mg/dL (<200); CREATININE 1.15 mg/dL (0.70-1.30); FREE T4 0.86 ng/dl (0.76-1.46); HDL CHOLESTEROL 28 mg/dl (40-60); LDL CHOLESTEROL 65 mg/dL (9-159); PHOSPHOROUS 2.2 mg/dL (2.5-4.9); SGOT/AST 11 IU/L (3-35); SGPT/ALT 14 U/L (12-78); TOTAL PROTEIN 6.3 gm/dL (6.4-8.2); TRIGLYCERIDES 133 mg/dl (<150); VLDL CHOLESTEROL 27 mg/dL (6-40)
[2018-06-16 07:32] LABS: ACT PARTIAL THROMBO TIME 24.9 SECONDS (20.8-31.5)
[2018-06-16 08:00] VITALS: BP 118/60
[2018-06-16 12:00] VITALS: BP 144/69
[2018-06-16 15:25] LABS: VITAMIN D, 25-HYDROXY 26.7 ng/mL (30-100)
[2018-06-16 16:00] VITALS: BP 100/40
[2018-06-16 20:00] VITALS: BP 145/73
[2018-06-17] VITALS: BP 140/63
[2018-06-17 06:26] LABS: BASO # 0.1 10*3/uL (0.0-0.1); BASO % 0.7 % (0.0-1.0); EOS # 0.4 10*3/uL (0.0-0.4); EOS % 3.5 % (1.0-4.0); HEMOGLOBIN 12.7 g/dl (14.0-18.0); LYMPH # 2.5 10*3/uL (1.3-4.4); LYMPH % 21.3 % (27.0-41.0); MEAN CORPUSCULAR HGB CONC 32.6 g/dl (33.0-37.0); MEAN PLATELET VOLUME 10.4 fl (9.6-12.3); MONO # 1.2 10*3/uL (0.1-1.0); MONO % 10.2 % (3.0-9.0); NEUT # 7.6 10*3/uL (2.3-7.9); PLATELET COUNT AUTOMATED 225 10*3/uL (130-400); RED BLOOD COUNT 4.38 10*6/uL (4.50-5.90); RED CELL DISTRI WIDTH 13.4 % (0-14.5); WHITE BLOOD COUNT 11.9 10*3/uL (4.8-10.8)
[2018-06-17 06:48] LABS: BUN 7 mg/dl (7-24); CHLORIDE 105 mmol/L (98-107); CREATININE 1.03 mg/dL (0.70-1.30); PHOSPHOROUS 3.1 mg/dL (2.5-4.9); POTASSIUM 4.3 mmol/L (3.5-5.1); SODIUM 139 mmol/L (136-145)
[2018-06-17 08:00] VITALS: BP 125/58
[2018-06-17 12:00] VITALS: BP 123/59
[2018-06-17 16:00] VITALS: BP 114/64
[2018-06-17 20:00] VITALS: BP 108/89
[2018-06-18] VITALS: BP 136/74
[2018-06-18 06:05] LABS: BASO # 0.1 10*3/uL (0.0-0.1); BASO % 0.6 % (0.0-1.0); EOS # 0.6 10*3/uL (0.0-0.4); HEMATOCRIT 37.7 % (42.0-52.0); HEMOGLOBIN 12.4 g/dl (14.0-18.0); LYMPH % 17.8 % (27.0-41.0); MEAN CELL VOLUME 87.7 fl (80.0-94.0); MEAN CORPUSCULAR HGB 28.8 pg (27.0-31.0); MEAN CORPUSCULAR HGB CONC 32.9 g/dl (33.0-37.0); MEAN PLATELET VOLUME 10.2 fl (9.6-12.3); MONO # 1.1 10*3/uL (0.1-1.0); MONO % 9.7 % (3.0-9.0); NEUT # 7.7 10*3/uL (2.3-7.9); NEUT % 66.6 % (47.0-73.0); PLATELET COUNT AUTOMATED 222 10*3/uL (130-400); RED CELL DISTRI WIDTH 13.4 % (0-14.5); WHITE BLOOD COUNT 11.5 10*3/uL (4.8-10.8)
[2018-06-18 06:14] LABS: BUN 5 mg/dl (7-24); CHLORIDE 103 mmol/L (98-107); CREATININE 1.01 mg/dL (0.70-1.30); POTASSIUM 3.7 mmol/L (3.5-5.1); SODIUM 137 mmol/L (136-145)
[2018-06-18 08:00] VITALS: BP 127/71
[2018-06-18 12:00] VITALS: BP 114/93
[2018-06-18 16:00] VITALS: BP 132/67
[2018-06-18 20:00] VITALS: BP 125/72
[2018-06-19] VITALS: BP 138/63
[2018-06-19 06:57] LABS: BASO # 0.1 10*3/uL (0.0-0.1); BASO % 1.3 % (0.0-1.0); EOS # 0.6 10*3/uL (0.0-0.4); EOS % 6.8 % (1.0-4.0); HEMATOCRIT 38.9 % (42.0-52.0); HEMOGLOBIN 12.7 g/dl (14.0-18.0); LYMPH # 2.4 10*3/uL (1.3-4.4); LYMPH % 27.2 % (27.0-41.0); MEAN CELL VOLUME 87.6 fl (80.0-94.0); MEAN CORPUSCULAR HGB 28.6 pg (27.0-31.0); MEAN CORPUSCULAR HGB CONC 32.6 g/dl (33.0-37.0); MEAN PLATELET VOLUME 10.6 fl (9.6-12.3); MONO % 10.9 % (3.0-9.0); NEUT # 4.8 10*3/uL (2.3-7.9); NEUT % 53.6 % (47.0-73.0); PLATELET COUNT AUTOMATED 244 10*3/uL (130-400); RED BLOOD COUNT 4.44 10*6/uL (4.50-5.90); RED CELL DISTRI WIDTH 13.3 % (0-14.5)
[2018-06-19 08:00] VITALS: BP 128/76
[2018-06-19 16:00] VITALS: BP 118/77
[2018-06-19 20:00] VITALS: BP 159/64
[2018-06-20] VITALS: BP 132/62
[2018-06-20 06:39] LABS: BASO # 0.1 10*3/uL (0.0-0.1); EOS # 0.7 10*3/uL (0.0-0.4); EOS % 7.5 % (1.0-4.0); HEMATOCRIT 39.8 % (42.0-52.0); LYMPH # 2.2 10*3/uL (1.3-4.4); LYMPH % 22.2 % (27.0-41.0); MEAN CELL VOLUME 88.1 fl (80.0-94.0); MEAN CORPUSCULAR HGB 28.8 pg (27.0-31.0); MEAN CORPUSCULAR HGB CONC 32.7 g/dl (33.0-37.0); MEAN PLATELET VOLUME 10.7 fl (9.6-12.3); MONO # 0.9 10*3/uL (0.1-1.0); MONO % 9.5 % (3.0-9.0); NEUT # 5.8 10*3/uL (2.3-7.9); NEUT % 59.6 % (47.0-73.0); PLATELET COUNT AUTOMATED 253 10*3/uL (130-400); RED BLOOD COUNT 4.52 10*6/uL (4.50-5.90); RED CELL DISTRI WIDTH 13.3 % (0-14.5); WHITE BLOOD COUNT 9.8 10*3/uL (4.8-10.8)
[2018-06-20 07:05] LABS: BUN 5 mg/dl (7-24); CHLORIDE 106 mmol/L (98-107); CREATININE 1.12 mg/dL (0.70-1.30); POTASSIUM 4.2 mmol/L (3.5-5.1); SODIUM 140 mmol/L (136-145)
[2018-06-20 08:00] VITALS: BP 135/69
[2018-06-20] MEDS ORDERED: FLAGYL500 MG PO (11:16)
[2018-06-20] MEDS ORDERED: NORCO 5-325 TA1 EACH PO (11:16)
[2018-06-20] MEDS ORDERED: CIPRO250 MG PO (11:16)
== END 2018-06-20 13:05 | disposition home or self-care (01) | DRG 392 ==
LOC: ED 09:51 → EDHOLD 13:08 → 4E 13:08
PROVIDERS: Emergency Medicine; Internal Medicine
PROC: 4A02XM4 Measurement of Cardiac Total Activity, External Approach (ICD-10-PCS; principal; 2018-06-16)
PROC: 3E073KZ Introduction of Other Diagnostic Substance into Coronary Artery, Percutaneous Approach (ICD-10-PCS; principal; 2018-06-16)
DX: K57.32 Diverticulitis of large intestine without perforation or abscess without bleeding (principal); E44.1 Mild protein-calorie malnutrition; I50.32 Chronic diastolic (congestive) heart failure; K21.9 Gastro-esophageal reflux disease without esophagitis; E83.41 Hypermagnesemia; F43.10 Post-traumatic stress disorder, unspecified; E78.5 Hyperlipidemia, unspecified; D72.829 Elevated white blood cell count, unspecified; R73.9 Hyperglycemia, unspecified; E53.8 Deficiency of other specified B group vitamins; E74.39 Other disorders of intestinal carbohydrate absorption; L30.9 Dermatitis, unspecified; G47.33 Obstructive sleep apnea (adult) (pediatric); K58.0 Irritable bowel syndrome with diarrhea; E86.0 Dehydration; E83.39 Other disorders of phosphorus metabolism; Z82.49 Family history of ischemic heart disease and other diseases of the circulatory system; Z86.73 Personal history of transient ischemic attack (TIA), and cerebral infarction without residual deficits; Z90.49 Acquired absence of other specified parts of digestive tract; Z87.442 Personal history of urinary calculi; Z80.0 Family history of malignant neoplasm of digestive organs; Z88.0 Allergy status to penicillin; Z88.5 Allergy status to narcotic agent; Z87.891 Personal history of nicotine dependence; Z79.899 Other long term (current) drug therapy; Z98.41 Cataract extraction status, right eye; Z98.42 Cataract extraction status, left eye; Z68.36 Body mass index [BMI] 36.0-36.9, adult

== ENCOUNTER 2019-08-11 10:33 | Emergency (ER) | payer OTHER ==
--- NOTE | ~2019-08-11 | EKG ---
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
[~2019-08-11 10:33] MED LIST changes: +CIPRO250 MG PO; +Clopidogrel75 MG PO; +FLAGYL500 MG PO; +HYDROXYZINE PAM50 MG PO; +LIPITOR40 MG PO; +Mysoline50 MG PO; +OMEPRAZOLE MAGN20 MG PO; +PRAZOSIN HCL2 MG PO; +REFRESH OPTIVE10 M2 OP; +TRAZODONE100 MG PO; +VIAGRA100 MG PO; +VITAMIN D31000 UNI1 PO; +ZOLOFT100 MG PO
[2019-08-11 11:02] LABS: BASO # 0.1 10*3/uL (0.0-0.1); BASO % 1.1 % (0.0-1.0); EOS # 0.3 10*3/uL (0.0-0.4); HEMATOCRIT 43.2 % (42.0-52.0); LYMPH # 2.4 10*3/uL (1.3-4.4); LYMPH % 19.4 % (27.0-41.0); MEAN CELL VOLUME 88.3 fl (80.0-94.0); MEAN CORPUSCULAR HGB 28.6 pg (27.0-31.0); MEAN CORPUSCULAR HGB CONC 32.4 g/dl (33.0-37.0); MEAN PLATELET VOLUME 10.2 fl (9.6-12.3); MONO # 0.8 10*3/uL (0.1-1.0); MONO % 6.7 % (3.0-9.0); NEUT # 8.6 10*3/uL (2.3-7.9); NEUT % 70.5 % (47.0-73.0); PLATELET COUNT AUTOMATED 317 10*3/uL (130-400); RED BLOOD COUNT 4.89 10*6/uL (4.50-5.90); RED CELL DISTRI WIDTH 13.4 % (0-14.5); WHITE BLOOD COUNT 12.2 10*3/uL (4.8-10.8)
[2019-08-11 11:10] LABS: ACT PARTIAL THROMBO TIME 29.2 SECONDS (20.0-32.1); INTERNATIONAL NORM RATIO 0.9 (2.0-3.5)
[2019-08-11 11:17] LABS: ALBUMIN 3.5 gm/dl (3.1-4.5); ALKALINE PHOSPHATASE 88 U/L (45-117); BUN 9 mg/dl (7-24); CHLORIDE 106 mmol/L (98-107); POTASSIUM 4.2 mmol/L (3.5-5.1); SGOT/AST 7 IU/L (3-35); SGPT/ALT 16 U/L (12-78); SODIUM 138 mmol/L (136-145); TOTAL PROTEIN 7.3 gm/dL (6.4-8.2)
[2019-08-11 11:21] LABS: TROPONIN I < 0.015 ng/ml (<0.045)
[2019-08-11 11:21] LABS: BILIRUBIN NEGATIVE (NEGATIVE); BLOOD TRACE-INTACT (NEGATIVE); CLARITY SL CLOUDY (CLEAR); COLOR YELLOW (YELLOW); GLUCOSE NEGATIVE (NEGATIVE); KETONE NEGATIVE (NEGATIVE); LEUKO ESTERASE NEGATIVE (NEGATIVE); NITRITE NEGATIVE (NEGATIVE); UROBILINOGEN 0.2 E.U./dl (0.2-1.0)
[2019-08-11 11:24] LABS: ETHYL ALCOHOL < 3.0 mg/dl (<3)
[2019-08-11 11:32] LABS: URINE AMPHETAMINES < 1000 (1000ng/ml); URINE BARBITURATES > 200 (200ng/ml); URINE BENZODIAZEPINES < 200 (200ng/ml); URINE CANNABINOIDS (THC) < 50 (50ng/ml); URINE COCAINE < 300 (300ng/ml); URINE METHADONE < 300 (300ng/ml); URINE OPIATES < 300 (300ng/ml)
[2019-08-11 11:33] LABS: URINE PHENCYCLIDINE < 25 (25ng/ml)
[2019-08-11 11:39] LABS: BACTERIA TRACE; EPITHELIAL CELLS 0-2; MUCOUS 2+; WBC 0-2 wbc/hpf (0-5)
== END 2019-08-11 19:13 | disposition short-term general hospital (02) ==
LOC: ED 10:33
PROVIDERS: Emergency Medicine
DX: F32.9 Major depressive disorder, single episode, unspecified (principal); R79.1 Abnormal coagulation profile; I50.32 Chronic diastolic (congestive) heart failure; Z87.891 Personal history of nicotine dependence; Z88.0 Allergy status to penicillin; Z88.6 Allergy status to analgesic agent; Z79.899 Other long term (current) drug therapy; Z86.718 Personal history of other venous thrombosis and embolism